=== PATIENT | male | born 1960 | race Caucasian/White ===

== ENCOUNTER 2018-07-03 07:19 | Emergency (ER) | payer OTHER ==
[~2018-07-03] VITALS: Ht 165.1 cm; Wt 81.6 kg
== END 2018-07-03 13:42 | disposition home or self-care (01) ==
LOC: ER 07:19
DX: N20.0 Calculus of kidney (principal); R10.31 Right lower quadrant pain

== ENCOUNTER 2019-03-11 17:09 | Emergency (ER) | payer OTHER ==
[~2019-03-11] VITALS: Ht 157.5 cm; Wt 74.8 kg
[2019-03-11] MEDS ORDERED: TAMS0.4C PO (21:58)
[2019-03-11] MEDS ORDERED: DUI500 PO (21:58)
[2019-03-11] MEDS ORDERED: KETO10TA2 PO (21:58)
== END 2019-03-11 22:09 ==
LOC: ER 17:09
DX: N20.1 Calculus of ureter (principal); N39.0 Urinary tract infection, site not specified